=== PATIENT | female | born 1960 | race Caucasian/White ===

== ENCOUNTER → 2016-08-19 | Outpatient (CLI) | payer OTHER | DX: Z12.31 Encounter for screening mammogram for malignant neoplasm of breast (principal) ==

== ENCOUNTER → 2016-09-23 | Outpatient (REF) ==
--- NOTE | 2016-09-23 13:33 | Diagnostic Imaging Report ---
3 views of the lumbar spine. INDICATION: Fall. FINDINGS: The alignment of the lumbar spine is satisfactory. The vertebral body heights are preserved. Disc heights demonstrate mild height loss at L3-L4 level. There is a transitional lumbosacral junction with sacralization of L5. There are multilevel small anterior osteophytes. No posterior osteophytes are seen. IMPRESSION: Mild degenerative changes. Dictated by: Dictated on workstation # [id number]
--- NOTE | 2016-09-23 13:34 | Diagnostic Imaging Report ---
3 views of the left foot. INDICATION: Fall. FINDINGS: There is no fracture, dislocation, or radiopaque foreign body. There is satisfactory alignment of the joint seen. There is mild hallux valgus deformity. IMPRESSION: Unremarkable exam. Dictated by: Dictated on workstation # [id number]
== END | disposition home or self-care (01) ==
LOC: OCC 12:44
PROVIDERS: ATTEND Nurse Practitioner Family
CPT/HCPCS: 72100; 73630

== ENCOUNTER → 2018-08-23 | Outpatient (CLI) | payer OTHER ==
--- NOTE | 2018-08-23 17:36 | Diagnostic Imaging Report ---
INDICATION: Routine screening. Comparison is made with prior mammograms from 08/22/2017 and 08/19/2016. 2-D and 3-D bilateral screening mammography was performed. The current study was also evaluated with a Computer Aided Detection (CAD) system. 3-D tomosynthesis was also performed and reviewed. FINDINGS: Both breasts are heterogeneously dense, limiting the sensitivity of mammography. No mass or malignant-appearing microcalcifications are seen. There are benign calcifications noted. Axillae are unremarkable. IMPRESSION: No mammographic features suspicious for malignancy are identified. ACR BI-RADS Category 2: Benign findings. Result letter will be mailed to the patient. Note: At least 10% of breast cancer is not imaged by mammography. Dictated by: Dictated on workstation # [id number]
== END ==
LOC: RAD 14:21
PROVIDERS: ATTEND Nurse Practitioner Family
DX: Z12.31 Encounter for screening mammogram for malignant neoplasm of breast (principal)
CPT/HCPCS: 77067

== ENCOUNTER → 2019-08-29 | Outpatient (CLI) | payer OTHER ==
--- NOTE | 2019-08-29 14:28 | Diagnostic Imaging Report ---
INDICATION: Routine screening. COMPARISON: 08/23/2018 and 08/22/2017. TECHNIQUE: 2D and 3D bilateral screening mammography was performed with CAD. FINDINGS: Both breasts remain heterogeneously dense, limiting the sensitivity of mammography. The overall parenchymal pattern appears to be stable. No dominant mass or malignant appearing microcalcifications are identified. The axillae are unremarkable. IMPRESSION: No mammographic features suspicious for malignancy are identified. ACR BI-RADS Category 1: Negative. Result letter will be mailed to the patient. Note: At least 10% of breast cancer is not imaged by mammography. Dictated by: Dictated on workstation # [id number]
== END ==
LOC: RAD 09:47
DX: Z12.31 Encounter for screening mammogram for malignant neoplasm of breast (principal)
CPT/HCPCS: 77063; 77067

== ENCOUNTER → 2020-09-22 | Outpatient (CLI) | payer OTHER ==
--- NOTE | 2020-09-22 14:39 | Diagnostic Imaging Report ---
INDICATION: Routine screening. Comparison is made with prior mammograms in 08/29/2019, 08/23/2018. 2-D and 3-D bilateral screening mammography was performed with CAD. Both breasts are heterogeneously dense, limiting the sensitivity of mammography. The overall parenchymal pattern is stable. No mass or malignant-appearing microcalcifications are seen. There are benign calcifications. Axillae are unremarkable. IMPRESSION: BI-RADS Category 2 No mammographic features suspicious for malignancy are identified. ACR BI-RADS Category 2: Benign findings. Result letter will be mailed to the patient. Note: At least 10% of breast cancer is not imaged by mammography. Dictated by: Dictated on workstation # [id number]
== END ==
LOC: RAD 07:30
DX: Z12.31 Encounter for screening mammogram for malignant neoplasm of breast (principal)
CPT/HCPCS: 77063; 77067

== ENCOUNTER → 2021-09-23 | Outpatient (CLI) | payer OTHER ==
--- NOTE | 2021-09-23 13:36 | Diagnostic Imaging Report ---
EXAMINATION: 3D Bilateral Screening Mammogram with CAD. INDICATION: Screening. COMPARISON: 09/22/2020, 08/29/2019, and 08/23/2018. PERSONAL HISTORY: At this time, there are no current complaints. FINDINGS: The fibroglandular tissue in both breasts is heterogeneously dense. This does limit the sensitivity of this exam. When compared to the previous study, there does not appear to have been any significant change. There is no primary or secondary sign of malignancy noted. IMPRESSION: There is no evidence for malignancy. ACR BI-RADS Category 1: Negative. Result letter will be mailed to the patient. Note: At least 10% of breast cancer is not imaged by mammography. Dictated by: Dictated on workstation # [id number]
== END ==
LOC: RAD 07:41
PROVIDERS: ATTEND Family Medicine
DX: Z12.31 Encounter for screening mammogram for malignant neoplasm of breast (principal)
CPT/HCPCS: 77063; 77067

== ENCOUNTER → 2022-10-15 | Outpatient (CLI) | payer OTHER ==
--- NOTE | 2022-10-15 11:29 | Diagnostic Imaging Report ---
Indication: Routine screening. Correlation is made with prior mammograms 09/23/2021 and 09/22/2020. 2-D and 3-D bilateral screening mammography was performed with CAD. Both breasts are heterogeneously dense, limiting the sensitivity of mammography. The parenchymal pattern is stable. No mass or malignant-appearing microcalcifications are seen. Axillae are unremarkable. IMPRESSION: BI-RADS Category 1 No mammographic features suspicious for malignancy are identified. ACR BI-RADS Category 1: Negative. Result letter will be mailed to the patient. Note: At least 10% of breast cancer is not imaged by mammography. Dictated by: Dictated on workstation # [id number]
== END ==
LOC: RAD 07:18
PROVIDERS: ATTEND Nurse Practitioner Family
DX: Z12.31 Encounter for screening mammogram for malignant neoplasm of breast (principal); Z00.01 Encounter for general adult medical examination with abnormal findings; E78.49 Other hyperlipidemia; E03.8 Other specified hypothyroidism; M25.551 Pain in right hip; R00.0 Tachycardia, unspecified; G43.719 Chronic migraine without aura, intractable, without status migrainosus; E55.9 Vitamin D deficiency, unspecified; F41.1 Generalized anxiety disorder; M22.42 Chondromalacia patellae, left knee; E03.9 Hypothyroidism, unspecified
CPT/HCPCS: 77063; 77067

== ENCOUNTER → 2022-11-06 | Outpatient (CLI) | payer OTHER ==
--- NOTE | 2022-11-06 12:46 | Diagnostic Imaging Report ---
CLINICAL INDICATION: Patient with left arm pain after being bitten by dog on 11/04/2022. Patient has swelling and redness. Patient has multiple puncture site sutures in place. EXAMS: 1: X-ray of the left hand, three views. 2: X-ray of the left wrist, two views. 3: X-ray of the left forearm, two views. COMPARISON: None. FINDINGS: There is soft tissue swelling involving the distal one third of the left forearm soft tissue and adjacent to the left wrist with soft tissue swelling. There is a small amount of air in the ventral aspect of the distal forearm/wrist region. There is no radiodense foreign object. X-ray of the left forearm, left wrist, and left hand shows no acute fracture or dislocation. There is soft tissue swelling also adjacent to the metacarpal bones dorsally. There is no elbow effusion. There is no significant bony abnormality involving the wrist or left hand. IMPRESSION: 1: X-rays of the left hand, left wrist, and left forearm show no acute fracture or dislocation. 2: There is soft tissue swelling and fat stranding involving the dorsal aspect of the hand and about the wrist and distal forearm regions. There is minimal soft tissue air adjacent to the distal forearm region. These findings are likely related to patient's history of dog bite. There is no radiodense foreign object seen. L1: Ventriculomegaly is Dictated by: Dictated on workstation # [id number]
== END ==
LOC: RAD 11:10
PROVIDERS: ATTEND Registered Nurse Critical Care Medicine
DX: Z00.01 Encounter for general adult medical examination with abnormal findings (principal); M79.89 Other specified soft tissue disorders; M79.642 Pain in left hand; W54.0XXD Bitten by dog, subsequent encounter; M22.42 Chondromalacia patellae, left knee; F41.1 Generalized anxiety disorder; E03.9 Hypothyroidism, unspecified; G47.00 Insomnia, unspecified; G43.009 Migraine without aura, not intractable, without status migrainosus; E78.49 Other hyperlipidemia; M13.80 Other specified arthritis, unspecified site
CPT/HCPCS: 73090; 73100; 73130